=== PATIENT | female | born 1980 | race Caucasian/White ===

== ENCOUNTER → 2021-12-14 13:47 | Outpatient (BNVA) | payer MEDICAID, SELFPAY | PROVIDERS: Family Provider Nurse Practitioner Family; PCP Registered Nurse; Visit Provider Registered Nurse | DX: Z02.1 Encounter for pre-employment examination (principal) | CPT/HCPCS: 80307 ==

== ENCOUNTER → 2022-11-28 16:12 | Outpatient (BNVA) | payer MEDICAID, SELFPAY | PROVIDERS: Family Provider Nurse Practitioner Family; PCP Registered Nurse; Referring Provider Registered Nurse; Visit Provider Psychiatry & Neurology Neurology | DX: G89.29 Other chronic pain (principal); R51.9 Headache, unspecified; R53.82 Chronic fatigue, unspecified | CPT/HCPCS: 80053; 82306; 82607; 82746; 83735; 83921; 84439; 84443; 84481; 85025; 85651; 86140; 86160; 86162; 86235; 86255; 86376; 86431; 86592; 86617; 86780 ==

== ENCOUNTER → 2022-11-30 10:29 | Outpatient (BNVA) | payer MEDICAID, SELFPAY | PROVIDERS: Family Provider Nurse Practitioner Family; PCP Registered Nurse; Visit Provider Registered Nurse | DX: Z01.419 Encounter for gynecological examination (general) (routine) without abnormal findings (principal) | CPT/HCPCS: 87070; 87205; 87624 ==

== ENCOUNTER 2022-12-18 14:04 | Outpatient (CLI) | payer MEDICAID, SELFPAY ==
--- NOTE | 2022-12-18 13:45 | MR_ITS ---
WS: [id number] MRI HEAD WITH CONTRAST TECHNIQUE: Sagittal T1, T2 axial, T2 axial FLAIR, axial susceptibility weighted imaging, axial diffus ion weighted images, and coronal T2 images were obtained. Pre and post-T1 axial and post T1 coronal i mages. ADC and FSPGR images. CLINICAL INFORMATION: R51.9 - Headache, unspecified COMPARISON: None. FINDINGS: No evidence of restricted diffusion to suggest acute ischemia. Ventricular system and basal cisterns are patent. Corpus callosum is normal in appearance. No callosal atrophy. 2 tiny foci of T2 hyperinte nsity in the LEFT frontal white matter nonspecific but can be seen with migraine headaches. No signif icant parenchymal volume loss. Normal posterior fossa. Normal vascular flow voids at the skull base. No extra-axial fluid collection s. No evidence of mass or mass effect. Mastoid air cells well aerated. Small amount of fluid in the R IGHT maxillary sinus. Mild mucosal thickening ethmoid air cells. Normal optic chiasm and pituitary infundibulum. Normal cavernous sinuses and Meckel's cave. No abnorm al intracranial enhancement. Normal visualized dural venous sinuses. 4 mm T1 hyperintense hypoenhanci ng focus in the pituitary likely incidental pars intermedia or tiny Rathke's cleft cyst. Recommend co rrelation with pituitary function studies. Microadenoma less likely. MR/MR head wo/w con [id number] IMPRESSION: 1. No evidence restricted diffusion to suggest acute ischemia. 2. Two small foci of T2 hyperintensity in the LEFT frontal periventricular whi te matter nonspecific in a patient this age but can be seen with migraine heada ches. 3. No other suspicious intracranial signal abnormalities. 4. Normal corpus callosum. No atrophy of the corpus callosum. 5. No abnormal gadolinium enhancement. 6. 4 mm T1 hyperintense hypoenhancing focus in the pituitary likely incidental pars intermedia or tiny Rathke's cleft cyst. Recommend correlation with pituit milagros function studies. 7. No other suspicious findings.
[2022-12-18] MEDS: gadobenate dimeglumine 20 mL vial IV (14:46)
== END 2022-12-18 14:05 | disposition home or self-care (01) ==
LOC: RAD 14:05
PROVIDERS: Family Provider Nurse Practitioner Family; PCP Registered Nurse; Visit Provider Psychiatry & Neurology Neurology
DX: R51.9 Headache, unspecified (principal); R90.89 Other abnormal findings on diagnostic imaging of central nervous system; G89.29 Other chronic pain; R53.82 Chronic fatigue, unspecified
CPT/HCPCS: 70553; A9577

== ENCOUNTER 2022-12-19 11:56 | Outpatient (CLI) | payer MEDICAID, SELFPAY ==
--- NOTE | 2022-12-19 12:00 | MM_ITS ---
WS: [id number] VIEWS: MLO and CC views both breasts. 3D digital tomosynthesis is also included in this exam. No previous exams for comparison. Findings: There are 2 small subcentimeter nodular densities identified in the central and lateral right breast seen on the cc view only. One nodule measures about 4 mm and is seen in the central aspect of the rig ht breast at mid to posterior depth and slightly lateral to the nipple line. The second lesion measur es about 6 mm and is seen in the far lateral and posterior right breast on the CC view. There are 3 s ubcentimeter nodular densities in the central lateral left breast seen on the cc view only. These all measure in the range of 6 to 3 mm and are partially obscured. The nodular densities described in bot h breast may represent small intramammary lymph nodes however further assessment with ultrasound woul d be indicated. Also straight 90 degree lateral views of both breasts should be obtained. There are s cattered areas of fibroglandular density in both breasts. No suspicious calcification is demonstrated in either breast. No architectural distortion in either breast. MM/[place] [id number] Impression: BI-RADS: 0-Incomplete: Need additional imaging evaluation FOLLOW-UP: See Report This mammogram was also analyzed by the Computer Aided Detection System R2 Imag e Hhas.
== END 2022-12-19 11:57 | disposition home or self-care (01) ==
PROVIDERS: PCP Registered Nurse; Visit Provider Registered Nurse
DX: Z12.31 Encounter for screening mammogram for malignant neoplasm of breast (principal)
CPT/HCPCS: 77063; 77067

== ENCOUNTER 2022-12-28 07:45 | Outpatient (CLI) | payer MEDICAID, SELFPAY ==
[2022-12-28 08:34] LABS: Cortisol Random 6.75 ug/dL (2.47-19.5)
[2022-12-28 08:37] LABS: Thyroid Stimulating Hormone 2.36 uIU/mL (0.27-4.20)
[2022-12-28 09:14] LABS: Estradiol 198.3 pg/mL; Follicle Stimulating Hormone 11.9 mIU/mL; Luteinizing Hormone 18.5 mIU/mL (0.5-41.7); Prolactin 24.07 ng/mL (4.8-23.3)
[2023-01-04 05:45] LABS: Adrenocorticotropic Hormone 6 pg/mL (6-50)
[2023-01-04 15:33] LABS: IGF1 LC/MS 191 ng/mL (52-328); Z Score (Female) 0.7 SD (-2.0 - +2.0)
== END 2022-12-28 07:46 | disposition home or self-care (01) ==
PROVIDERS: PCP Registered Nurse; Visit Provider Internal Medicine
DX: E23.7 Disorder of pituitary gland, unspecified (principal)
CPT/HCPCS: 36415; 82024; 82533; 82670; 83001; 83002; 84146; 84305; 84439; 84443

== ENCOUNTER 2023-01-10 11:47 | Outpatient (CLI) | payer MEDICAID, SELFPAY ==
--- NOTE | 2023-01-10 11:56 | MM_ITS ---
WS: [id number] BILATERAL 3D TOMOSYNTHESIS DIGITAL DIAGNOSTIC MAMMOGRAPHY WITH CAD CLINICAL INFORMATION: ABNORMAL MAMMO HISTORY: Additional views COMPARISON: December 19, 2022 TECHNIQUE: Bilateral CC, MLO, and ML views. FINDINGS: Scattered fibroglandular densities bilaterally. Previously described bilateral tiny nodular densities LEFT greater than RIGHT appear unchanged. Some of these may represent tiny cysts or lymph nodes. Ult rasound described below. ULTRASOUND BREAST BILATERAL TECHNIQUE: Ultrasound bilateral breast focused area of concern. CLINICAL INFORMATION: ABNORMAL MAMMO COMPARISON: None. FINDINGS: RIGHT BREAST: Ultrasound RIGHT breast upper-outer quadrant 9-12. A few tiny incidental cysts. No susp icious cystic or solid lesions. No lesions to target for biopsy. Largest simple cyst at the 12:00 pos ition areola measuring 7.0 x 3.6 x 5.9 mm. LEFT BREAST: Ultrasound LEFT breast upper-outer quadrant 12-3. A few tiny cysts LEFT breast. No suspi cious cystic or solid lesions. No suspicious lesions to target for biopsy. MM/[place] [id number] IMPRESSION: BI-RADS: 2-Benign FOLLOW UP: 1 Year Follow-up Recommend return to annual screening mammography.
== END 2023-01-10 11:48 | disposition home or self-care (01) ==
LOC: RAD 11:50
PROVIDERS: PCP Registered Nurse; Visit Provider Registered Nurse
DX: R92.8 Other abnormal and inconclusive findings on diagnostic imaging of breast (principal); N60.02 Solitary cyst of left breast; N60.01 Solitary cyst of right breast
CPT/HCPCS: 76642; 77062; G0279

== ENCOUNTER → 2023-01-16 12:07 | Day surgery (SDC) | payer MEDICAID, SELFPAY ==
[2023-01-16] MEDS: cosyntropin 0.25 mg SDV IVP (12:33)
--- NOTE | 2023-01-16 13:40 | PC.NURSE ---
Pt referral to GI infusions for Cosyntropin stim test. Pt verbalized understanding. Tolerated procedure well.
[2023-01-16 14:29] LABS: Cosyntropin 30 Minute 20.04 mcg/dL
[2023-01-16 14:36] VITALS: BP 123/73; PULSE 85; RESP 18; TEMP 36.9; O2SAT 97
[2023-01-16 15:07] LABS: Cosyntropin 1 Hour 21.81 mcg/dL
== END ==
PROVIDERS: PCP Registered Nurse; Visit Provider Internal Medicine
DX: E27.9 Disorder of adrenal gland, unspecified (principal); R53.83 Other fatigue
CPT/HCPCS: 36415; 82533; 96374; J0834

== ENCOUNTER 2023-03-08 09:08 | Outpatient (CLI) | payer MEDICAID, SELFPAY ==
[2023-03-08 10:32] LABS: Prolactin 4.97 ng/mL (4.8-23.3)
== END 2023-03-08 09:09 | disposition home or self-care (01) ==
PROVIDERS: PCP Registered Nurse; Visit Provider Internal Medicine
DX: R79.89 Other specified abnormal findings of blood chemistry (principal); D35.2 Benign neoplasm of pituitary gland; E27.9 Disorder of adrenal gland, unspecified; R53.83 Other fatigue
CPT/HCPCS: 36415; 84146

== ENCOUNTER 2023-03-15 11:34 | Outpatient (CLI) | payer MEDICAID, SELFPAY ==
[2023-03-15 12:03] LABS: Total Volume Urine 1975 ml
[2023-03-15 12:29] LABS: Creatinine 24 Hour Urine 1382.5 mg/dL (601-1689); Urine Creatinine 70 mg/dL (28-217)
[2023-03-21 09:39] LABS: Calculated Total (E+NE) 23 mcg/24 h (26-121)
[2023-03-22 07:20] LABS: Free Cortisol Urine 41.3 mcg/24 h (4.0-50.0); Total Urine 1975 mL; Urine Creatinine 1.47 g/24 h (0.50-2.15)
== END 2023-03-15 11:35 | disposition home or self-care (01) ==
PROVIDERS: PCP Registered Nurse; Visit Provider Internal Medicine
DX: R51.9 Headache, unspecified (principal); G89.29 Other chronic pain; R53.83 Other fatigue; D35.2 Benign neoplasm of pituitary gland; R79.89 Other specified abnormal findings of blood chemistry
CPT/HCPCS: 82384; 82530; 82570

== ENCOUNTER 2023-04-04 07:06 | Outpatient (CLI) | payer MEDICAID, SELFPAY ==
--- NOTE | 2023-04-04 07:15 | US_ITS ---
WS: [id number] US pelv w/transvag [id number] HISTORY: PCOS COMPARISON: None available. Uterus: 8.8 cm x 5.6 cm x 4.6 cm. Normal size anteverted uterus. There is a hypoechoic mass in the anterior mid myometrium measuring 1. 2 x 1.5 x 1.0 cm. Mild bulge of the contour of the uterus. No additional mass. Endometrium: 1.4 cm. Normal. Right ovary: 2.5 cm x 3.3 cm x 1.9 cm. Normal size and vascularity, no cystic or solid masses. Small follicles. Left ovary: 2.9 cm x 3.0 cm x 2.0 cm. Normal size and vascularity, no cystic or solid masses. Small f ollicles. No free fluid in the cul-de-sac. IMPRESSION: 1. Anterior myometrial fibroid measuring 1.2 x 1.5 x 1.0 cm. 2. Normal endometrium. 3. No ovarian mass or cyst.
[2023-04-04 08:08] LABS: Basophils % 0.3 %; Eosinophils # 0.1 10^3/uL (0.0-0.8); Eosinophils % 1.5 %; Hematocrit 42.3 % (36-47); Lymphocytes # 1.9 10^3/uL (0.8-4.8); Lymphocytes % 28.4 %; Mean Corpuscular HGB Conc 33.8 g/dL (30-55); Mean Corpuscular Hemoglobin 30.8 pg (27-33); Mean Platelet Volume 10.9 fL (7.4-10.4); Monocytes # 0.5 10^3/uL (0.2-0.9); Monocytes % 7.1 %; Neutrophils # 4.24 10^3/uL (1.8-7.7); Neutrophils % 62.6 %; Nucleated Red Blood Cells % 0 %; Platelet Count 225 10^3/cmm (157-399); Red Blood Count 4.65 10^6/uL (3.85-5.65); Red Cell Distribution Width 12.4 % (12.1-15.1); White Blood Count 6.77 10^3/uL (3.29-11.43)
[2023-04-04 08:24] LABS: Anion Gap 12.4 (5-19); Blood Urea Nitrogen 7 mg/dL (6-20); Calcium 9.1 mg/dL (8.5-10.5); Carbon Dioxide 29 mmol/L (22-29); Chloride 101 mmol/L (98-107); Glomerular Filtration Rate 135.3 mL/min (90-130); Glucose 109 mg/dL (65-115); Osmolality Calculated 285 mOsm/kg (285-295); Potassium 4.4 mmol/L (3.5-5.1); Sodium 138 mmol/L (136-145)
[2023-04-04 09:11] LABS: 25 Hydroxy Vitamin D 45 ng/mL (30-100); Vitamin B12 562 pg/mL (232-1245)
[2023-04-13 01:11] LABS: Plasma Renin Activity LC/MS/MS 1.03 ng/mL/h (0.25-5.82)
== END 2023-04-04 07:07 | disposition home or self-care (01) ==
PROVIDERS: PCP Registered Nurse; Visit Provider Internal Medicine
DX: R79.89 Other specified abnormal findings of blood chemistry (principal); E28.2 Polycystic ovarian syndrome; R53.83 Other fatigue; D35.2 Benign neoplasm of pituitary gland; E27.9 Disorder of adrenal gland, unspecified; E53.8 Deficiency of other specified B group vitamins
CPT/HCPCS: 36415; 76830; 76856; 80048; 82088; 82306; 82607; 84244; 85025

== ENCOUNTER → 2023-04-19 11:28 | Outpatient (BNVA) | payer MEDICAID, SELFPAY | PROVIDERS: PCP Registered Nurse; Visit Provider Internal Medicine | DX: E27.9 Disorder of adrenal gland, unspecified (principal); E28.2 Polycystic ovarian syndrome; R79.89 Other specified abnormal findings of blood chemistry; D35.2 Benign neoplasm of pituitary gland; R53.83 Other fatigue | CPT/HCPCS: 80061; 83036; 84146; 84403 ==

== ENCOUNTER 2023-05-02 07:57 | Outpatient (CLI) | payer MEDICAID, SELFPAY ==
--- NOTE | 2023-05-02 08:30 | FL_ITS ---
WS: [id number] LUMBAR PUNCTURE CLINICAL INFORMATION: R51.9 - Headache, unspecified COMPARISON: None. TECHNIQUE: Informed consent: The procedure and its potential risk and complications were discussed with the naren ent. Verbal and written consent was obtained. Timeout: A timeout was performed to confirm correct patient, procedure, and site. Patient was prepped and draped in the usual sterile fashion. Lidocaine 1% was used for local anesthes ia. Utilizing fluoroscopic guidance, a 3.5 inch 22-gauge spinal needle was advanced into the subarach noid space at L3-L4 via LEFT oblique sublaminar approach. Free flow of clear CSF was obtained. 9 c c of clear CSF was collected and sent the lab for further analysis. FLUOROSCOPIC TIME: 1min [id number] # of spot films: 1 IMPRESSION: Fluoroscopically guided lumbar puncture. No immediate complications
[2023-05-02 11:44] LABS: CSF Mononuclear # 0.001 10^3/uL (50-90); Mononuclear WBC CSF % 100 % (50-90); Polynuclear WBC CSF % 0 % (0-10); Red Blood Cell CSF 0 10^3/uL (0-0); White Blood Cell CSF 1 /uL (0-5)
[2023-05-02 11:47] LABS: Glucose CSF 63 mg/dL (40-70); Total Protein CSF 32 mg/dL (15-45)
[2023-05-02 12:09] LABS: Appearance CSF CLEAR (CLEAR); Color CSF COLORLESS (COLORLESS)
[2023-05-02 14:33] LABS: Immunoglobulin IGG 993 mg/dL (700-1600)
[2023-05-07 03:31] LABS: VDRL on CSF NON-REACTIVE
[2023-05-07 14:33] LABS: AQP4 AB Titer CSF NEGATIVE (NEGATIVE)
[2023-05-07 16:03] LABS: Oligoclonal Bands IGG, CSF ABSENT (ABSENT)
[2023-05-08 10:11] LABS: Myelin Oligodendrocyte CBA CSF NEGATIVE (NEGATIVE)
[2023-05-08 14:24] LABS: Immunoglobulin G, CSF 2.1 mg/dL (0.8-7.7)
[2023-05-10 18:11] LABS: Myelin Oligodendrocyte(MOG) AB NEGATIVE (NEGATIVE)
== END 2023-05-02 07:58 | disposition home or self-care (01) ==
LOC: RAD 07:57
PROVIDERS: PCP Registered Nurse; Visit Provider Psychiatry & Neurology Neurology
DX: R51.9 Headache, unspecified (principal); G89.29 Other chronic pain; R53.82 Chronic fatigue, unspecified; R68.89 Other general symptoms and signs; G37.9 Demyelinating disease of central nervous system, unspecified
CPT/HCPCS: 36415; 62328; 80503; 82784; 82945; 83516; 83916; 84157; 86225; 86255; 86592; 87070; 87075; 87205; 87327; 89050

== ENCOUNTER → 2023-06-25 09:02 | Outpatient (BNVA) | payer MEDICAID, SELFPAY | PROVIDERS: PCP Registered Nurse; Visit Provider Internal Medicine | DX: D35.2 Benign neoplasm of pituitary gland (principal); R79.89 Other specified abnormal findings of blood chemistry; E27.9 Disorder of adrenal gland, unspecified | CPT/HCPCS: 36415; 80061; 83036; 84146 ==

== ENCOUNTER 2023-06-27 10:42 | Outpatient (CLI) | payer MEDICAID, SELFPAY ==
--- NOTE | 2023-06-27 11:00 | MR_ITS ---
WS: [id number] MRI HEAD WITHOUT AND WITH CONTRAST TECHNIQUE: Sagittal T1, T2 axial, T2 axial FLAIR, axial susceptibility weighted imaging, axial diffus ion weighted images, and coronal T2 images were obtained. Pre and post-T1 axial and post T1 coronal i mages. ADC and FSPGR images. Pituitary protocol utilized. Dynamic pituitary images obtained. CLINICAL INFORMATION: E23.7 - Disorder of pituitary gland, unspecified COMPARISON: MRI head 12/18/2022 CLINICAL INFORMATION: E23.7 - Disorder of pituitary gland, unspecified FINDINGS: Again seen is the small 4 mm T1 hyperintense hypoenhancing lesion in the pituitary anterior to the no rmal T1 hyperintense neurohypophysis and posterior to the adenohypophysis anteriorly. No significant enhancement today. This appears unchanged. Normal optic chiasm and pituitary infundibulum. Normal cav ernous sinuses. Differential considerations include hemorrhagic microadenoma versus Rathke's cleft cy st. No other significant changes compared to previous. No evidence of restricted diffusion to suggest acute ischemia. Ventricular system and basal cisterns are patent. No new suspicious intracranial signal normalities. Normal posterior fossa. Normal vascular flow voids at the skull base. No extra-axial fluid collection s. Paranasal sinuses and mastoid air cells are well aerated. No hemosiderin on the susceptibly weight ed images. IMPRESSION: 1. Stable hypoenhancing T1 hyperintense lesion interposed between the adenohypophysis and neurapophy sis. Differential considerations include Rathke's cleft cyst versus hemorrhagic pituitary microadenom a. Recommend correlation with pituitary function studies. 2. Otherwise no significant changes compared to previous.
[2023-06-27] MEDS: gadobenate dimeglumine 20 mL vial IV (12:59)
== END 2023-06-27 10:43 | disposition home or self-care (01) ==
LOC: RAD 10:42
PROVIDERS: PCP Registered Nurse; Visit Provider Psychiatry & Neurology Neurology
DX: E23.7 Disorder of pituitary gland, unspecified (principal)
CPT/HCPCS: 70553; A9577

== ENCOUNTER → 2023-09-04 14:16 | Outpatient (BNVA) | payer MEDICAID, SELFPAY | PROVIDERS: PCP Registered Nurse; Visit Provider Internal Medicine | DX: R07.9 Chest pain, unspecified (principal) | CPT/HCPCS: 93005 ==

== ENCOUNTER 2023-09-12 10:03 | Outpatient (CLI) | payer MEDICAID, SELFPAY ==
--- NOTE | 2023-09-12 10:30 | USCV_ITS ---
Carmen Anne Age: 43 Gender: F : 1980 Exam Date: 09/12/2023 10:20 Ordering Phys: Baudilio Ma M.D ([email or web address]) Technologist: MEAGAN Exam Location: [facility] – [place], [place] Indication: CHEST PAIN AND SHORTNESS OF BREATH BP: 109 / 79 HR: 65 Rhythm: Sinus Technical Quality: Adequate MEASUREMENTS (Male / Female) Normal Values 2D ECHO LV Diastolic Diameter PLAX 4.8 cm 4.2 - 5.9 / 3.9 - 5.3 cm IVS Diastolic Thickness 0.9 cm 0.6 - 1.0 / 0.6 - 0.9 cm IVS Systolic Thickness 1.2 cm LVPW Diastolic Thickness 1.2 cm 0.6 - 1.0 / 0.6 - 0.9 cm LVPW Systolic Thickness 2.2 cm LVOT Diameter 2.0 cm LV Ejection Fraction 2D Teich 80.1 % LV Ejection Fraction MOD 2C 56.5 % LV Ejection Fraction 2C AL 0.0 % LA Diameter 2.6 cm Aorta at Sinotubular Diameter 2.0 cm IVC Diameter 1.4 cm M-MODE LA Ao Ratio MM 1.0 AV Cusp Separation MM 1.6 cm DOPPLER AV Peak Velocity 106.0 cm/s LVOT Peak Velocity 101.0 cm/s AV Area Cont Eq vti 2.6 cm squared AV Area Cont Eq pk 3.0 cm squared MV Peak Velocity 87.0 cm/s MV Area PHT 3.6 cm squared Mitral E to A Ratio 1.8 TR Peak Velocity 166.0 cm/s TR Peak Gradient 11.0 mmHg TR Mean Velocity 149.0 cm/s TR Mean Gradient 9.1 mmHg TR Velocity Time Integral 62.1 cm TV Peak E Velocity 72.0 cm/s PV Peak Velocity 94.0 cm/s RV Ejection Time 0.3 s FINDINGS Left Ventricle Left ventricle is normal in size. LV systolic function is normal with EF of 55 to 60%. No regional wall motion abnormalities seen. Diastolic function is normal. Right Ventricle Normal in size and function Right Atrium Normal in size Left Atrium Normal in size Mitral Valve Structurally normal mitral valve. Trace mitral regurgitation. Aortic Valve Structurally normal aortic valve. No significant stenosis or regurgitation. Tricuspid Valve Mild tricuspid regurgitation. Insufficient TR jet to calculate RVSP. Pulmonic Valve Not well visualized Pericardium Normal Aorta Normal in size IVC Appears to be normal CONCLUSIONS LV systolic function normal with EF of 55 to 60%. Diastolic function is normal. Trace mitral regurgitation Mild tricuspid regurgitation Compared to prior echocardiogram from 2016, no significant changes are seen. Baudilio Ma MD (Electronically Signed) Final Date: 14 September 2023 13:57 S
== END 2023-09-12 10:04 | disposition home or self-care (01) ==
LOC: RAD 10:03
PROVIDERS: PCP Registered Nurse; Visit Provider Internal Medicine
DX: R07.9 Chest pain, unspecified (principal); R06.02 Shortness of breath
CPT/HCPCS: 93306

== ENCOUNTER 2023-09-16 12:34 | Outpatient (CLI) | payer MEDICAID, SELFPAY ==
[2023-09-16 12:41] VITALS: BMI 24.7
--- NOTE | 2023-09-16 12:47 | ECG_ITS ---
[facility] Test Date: 2023-09-16 Pat Name: Carmen Anne Department: Room: Gender: Female Hearing Therapist: : 1980 Requested By: Baudilio Ma Order Number: [id number] Walker MD: Baudilio Ma M.D. Interpretive Statements NAME OF STUDY: TREADMILL STRESS TEST INDICATION: [Chest Pain] EXERCISE DATA: The patient was exercised by Balaji protocol. Baseline heart rate was 88 beats per minute. Baseline blood pressure was 123/88 millimeters of mercury. Maximal predicted heart rate was 178 beats per minute. Maximum heart rate achieved was 185, which was 103% of the maximum predicted heart rate. Maximum blood pressure was 163/82 millimeters of mercury. Total exercise time was 9 minutes 31 seconds. Maximum METs achieved was 13.5. The reason for ending the test was completion of protocol. The patient complained of shortness of breath during the stress test, which then resolved at the end of the test. ELECTROCARDIOGRAM: BASELINE: Showed sinus rhythm, normal axis, no significant ST-T changes at the baseline noted. [] EXERCISE: At the peak exercise level, [] No significant ST-T changes suggestive of ischemia noted. [] RECOVERY: During the recovery period, heart rate dropped appropriately. No significant ST-T changes in the recovery suggestive of ischemia noted. [] CONCLUSION: 1. Exercise capacity is excellent 2. Heart rate response was appropriate 3. Blood pressure response was appropriate 4. Symptoms not suggestive of ischemia. 5. Stress test doesnot show ischemia Electronically Signed On 10-02-2023 16:28:26 CDT by Baudilio Ma M.D. [email or web address]
[2023-09-16 13:27] VITALS: BP 112/64; PULSE 122
== END 2023-09-16 12:35 | disposition home or self-care (01) ==
PROVIDERS: PCP Registered Nurse; Visit Provider Internal Medicine
DX: R07.9 Chest pain, unspecified (principal); R06.02 Shortness of breath
CPT/HCPCS: 93017

== ENCOUNTER → 2023-09-30 10:51 | Outpatient (BNVA) | payer MEDICAID, SELFPAY | PROVIDERS: PCP Registered Nurse; Visit Provider Obstetrics & Gynecology | DX: N93.9 Abnormal uterine and vaginal bleeding, unspecified (principal); D25.9 Leiomyoma of uterus, unspecified | CPT/HCPCS: 76830 ==

== ENCOUNTER 2023-10-07 10:27 | Outpatient (CLI) | payer MEDICAID, SELFPAY ==
[2023-10-07 11:46] LABS: Chol HDL Ratio 6.34 mg/dL (0.0-4.40); Cholesterol 241 mg/dL (0-200); HDL Cholesterol 38 mg/dL (60-100); LDL Cholesterol Calculated 156 mg/dL (50-129); LDL HDL Ratio 4.11 RATIO (0.00-3.22); Triglycerides 235 mg/dL (0-150)
[2023-10-07 11:47] LABS: Prolactin 1.57 ng/mL (4.8-23.3)
[2023-10-07 16:23] LABS: Cosyntropin Baseline 9.06 mcg/dL
[2023-10-07 16:24] LABS: Cosyntropin 30 Minute 25.32 mcg/dL
[2023-10-07 16:37] LABS: Free T4 Free Thyroxine 1.65 ng/dL (0.82-1.77)
== END 2023-10-07 10:28 | disposition home or self-care (01) ==
LOC: LAB 10:30
PROVIDERS: PCP Registered Nurse; Visit Provider Internal Medicine
DX: D35.2 Benign neoplasm of pituitary gland (principal); E34.9 Endocrine disorder, unspecified; R79.89 Other specified abnormal findings of blood chemistry; E27.9 Disorder of adrenal gland, unspecified
CPT/HCPCS: 36415; 80061; 82533; 84144; 84146; 84439

== ENCOUNTER 2023-10-07 10:58 | Oncology outpatient (recurring) (ONCR) | payer MEDICAID, SELFPAY ==
[2023-10-07 11:20] VITALS: BP 107/70; PULSE 76; RESP 18; TEMP 36.8; O2SAT 97
[2023-10-07] MEDS: cosyntropin 0.25 mg SDV IVP (11:41)
== END 2023-10-20 23:59 | disposition home or self-care (01) ==
PROVIDERS: PCP Registered Nurse; Visit Provider Internal Medicine
DX: D35.2 Benign neoplasm of pituitary gland (principal); Z53.9 Procedure and treatment not carried out, unspecified reason
CPT/HCPCS: 96374; J0834

== ENCOUNTER 2023-10-30 14:47 | Outpatient (CLI) | payer MEDICAID, SELFPAY ==
[2023-10-30 15:52] LABS: Cortisol Random 10.62 ug/dL (2.47-19.5)
[2023-11-04 03:39] LABS: Adrenocorticotropic Hormone 6 pg/mL (6-50)
== END 2023-10-30 14:48 | disposition home or self-care (01) ==
LOC: LAB 14:48
PROVIDERS: PCP Registered Nurse; Visit Provider Internal Medicine
DX: N92.6 Irregular menstruation, unspecified (principal); E34.9 Endocrine disorder, unspecified; D35.2 Benign neoplasm of pituitary gland
CPT/HCPCS: 36415; 82024; 82533

== ENCOUNTER 2023-12-03 15:14 | Emergency (ER) | payer MEDICAID, SELFPAY ==
[2023-12-03 15:20] VITALS: PULSE 70; RESP 16; TEMP 36.8; O2SAT 97; BMI 23.9
[2023-12-03 16:03] VITALS: BP 144/84; PULSE 74; RESP 16; O2SAT 96
--- NOTE | 2023-12-03 16:03 | CTR_ITS ---
PROCEDURE INFORMATION: Exam: CTA Head With Contrast, Arteriography Exam date and time: 12/03/2023 5:01 PM Age: 43 years old Clinical indication: Pain; Headache; Patient HX: Pituitary tumor; Additional info: KENT TECHNIQUE: Imaging protocol: Computed tomographic angiography of the head with contrast. Exam focused on the arteries. 3D rendering (Not supervised by radiologist): MIP and/or 3D reconstructed images were created by the technologist. Radiation optimization: All CT scans at this facility use at least one of these dose optimization techniques: automated exposure control; mA and/or kV adjustment per patient size (includes targeted exams where dose is matched to clinical indication); or iterative reconstruction. Contrast material: OMNI 350; Contrast volume: 100 ml; Contrast route: INTRAVENOUS (IV); COMPARISON: CT head wo con* [id number] 03/12/2023 16:57 RADIATION DOSE METRICS: Total DLP (mGy-cm): 492 FINDINGS: ANTERIOR CIRCULATION: Right internal carotid artery: Intracranial segment is patent with no significant stenosis. No aneurysm. Right middle cerebral artery: No occlusion or significant stenosis. No aneurysm. Right anterior cerebral artery: No occlusion or significant stenosis. No aneurysm. Left internal carotid artery: Intracranial segment is patent with no significant stenosis. No aneurysm. Left middle cerebral artery: No occlusion or significant stenosis. No aneurysm. Left anterior cerebral artery: No occlusion or significant stenosis. No aneurysm. POSTERIOR CIRCULATION: Right vertebral artery: No occlusion or significant stenosis. No aneurysm. Left vertebral artery: No occlusion or significant stenosis. No aneurysm. Basilar artery: No occlusion or significant stenosis. No aneurysm. Right posterior cerebral artery: No occlusion or significant stenosis. No aneurysm. Left posterior cerebral artery: No occlusion or significant stenosis. No aneurysm. Brain: No definite mass, mass effect, or midline shift. Cerebral ventricles: No ventriculomegaly. Bones/joints: Unremarkable. No acute fracture. Soft tissues: Unremarkable. PROCEDURE INFORMATION: Exam: CTA Neck With Contrast Exam date and time: 12/03/2023 5:01 PM Age: 43 years old Clinical indication: Pain; Headache; Patient HX: Pituitary tumor; Additional info: KENT TECHNIQUE: Imaging protocol: Computed tomographic angiography of the neck with contrast. Exam focused on the cervical segments of the vasculature. 3D rendering (Not supervised by radiologist): MIP and/or 3D reconstructed images were created by the technologist. Radiation optimization: All CT scans at this facility use at least one of these dose optimization techniques: automated exposure control; mA and/or kV adjustment per patient size (includes targeted exams where dose is matched to clinical indication); or iterative reconstruction. Contrast material: OMNI 350; Contrast volume: 100 ml; Contrast route: INTRAVENOUS (IV); COMPARISON: CT head wo con* [id number] 03/12/2023 16:57 RADIATION DOSE METRICS: Total DLP (mGy-cm): 492 FINDINGS: Right common carotid artery: No stenosis. No dissection or occlusion. Right internal carotid artery: No stenosis of the extracranial segment. No dissection or occlusion. Right external carotid artery: No occlusion or stenosis of the origin. Left common carotid artery: No stenosis. No dissection or occlusion. Left internal carotid artery: No stenosis of the extracranial segment. No dissection or occlusion. Left external carotid artery: No occlusion or stenosis of the origin. Right vertebral artery: No stenosis. No dissection or occlusion. Left vertebral artery: No stenosis. No dissection or occlusion. Lymph nodes: There are old calcified left hilar lymph nodes Soft tissues: Normal. No significant soft tissue swelling. Bones/joints: No acute fracture. Lungs: There is a 3 mm noncalcified nodule in the posterior right upper lobe (series 4, image 78). For patients at low risk (minimal or absent history of smoking and of other known risk factors), no routine follow-up is indicated. For patients at high risk (history of smoking or of other known risk factors), consider optional CT Chest at 12 months. (Reference: Dion) CT/CT angio headneck* [id number] IMPRESSION: No large vessel stenosis or occlusion. IMPRESSION: 1. No large vessel stenosis or occlusion 2. 3 mm noncalcified nodule right upper lobe with follow-up recommendations as above REFERENCES: 1. Dion Hernandez, et al. Guidelines for Management of Incidental Pulmonary Nodules Detected on CT Images: From the Fleischner Society 2017. Radiology. 2017;284(1):228-243. 2. NASCET CRITERIA. The degree of stenosis in the cervical segment of the internal carotid artery is based on NASCET criteria. Normal is no stenosis. Mild is less than 50% stenosis. Moderate is 50-69% stenosis. Severe is 70% to 99% stenosis. Total occlusion is no detectable patent lumen.
--- NOTE | 2023-12-03 16:03 | CTR_ITS ---
PROCEDURE INFORMATION: Exam: CT Head Without Contrast Exam date and time: 12/03/2023 4:57 PM Age: 43 years old Clinical indication: Pain; Headache; Patient HX: Pituitary tumor; Additional info: KENT TECHNIQUE: Imaging protocol: Computed tomography of the head without contrast. Radiation optimization: All CT scans at this facility use at least one of these dose optimization techniques: automated exposure control; mA and/or kV adjustment per patient size (includes targeted exams where dose is matched to clinical indication); or iterative reconstruction. COMPARISON: MR head wo/w con [id number] 18/12/2022 14:18 and MRI pituitary protocol June 27, 2023 RADIATION DOSE METRICS: Total DLP (mGy-cm): 1049.38 FINDINGS: Brain: Normal. No hemorrhage. Unremarkable white matter. No mass effect. The patient's known 4 mm pituitary lesion cannot be visualized on this exam. On the sagittal images there has been no major interval change in the appearance of the pituitary fossa or suprasellar region when compared to the previous MRIs Cerebral ventricles: No ventriculomegaly. Paranasal sinuses: Visualized sinuses are unremarkable. No fluid levels. Mastoid air cells: Visualized mastoid air cells are well aerated. Bones: Unremarkable. No acute fracture. Soft tissues: Unremarkable. CT/CT head wo con* [id number] IMPRESSION: No acute intracranial abnormality.
--- NOTE | 2023-12-03 16:06 | ED_ITS ---
HPI - Headache General: Chief Complaint: Headache Stated Complaint: headache Time Seen by Provider: 12/03/23 15:58 Source: patient Mode of arrival: ambulatory Limitations: no limitations History of Present Illness: 43-year-old female with history of pitui tary tumor she is also had history of chronic headaches as well she said she had a worsening headache over the last 2 weeks and she spoke to her neurologist who wanted her to come here for imaging to rule out possible hemorrhage she states it does feel like her previous headaches is just lasted longer denies any vomiting or diarrhea Associated symptoms: Deny chest pain, fever(s), nausea, rash or vomiting Review of Systems Const: Denies: fever(s), chills, body aches or change in appetite Eyes: Denies: blurry vision or eye discomfort ENMT: Denies: throat pain or dental pain Card: Denies: chest pain Resp: Denies: dyspnea GI: Denies: abdominal pain, nausea, vomiting or diarrhea Musc: Denies: neck pain or back pain Skin/Breast: Denies: rash Neuro: Reports: headache(s) PFSH ED PFSH: Medical History Fibromyalgia Chronic fatigue syndrome 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 Dx based on symptoms when in highschool Asthma Surgical History History of tubal ligation 2006 Family History Grandmother Cancer Mother Hypertension Social History Smoking and tobacco/nicotine status: former use of tobacco/nicotine Alcohol intake: never Adopted: No Caregiver/support person: No Lives independently: No Marital status: Number of children: 1 service: No Sexually active: Yes Physical Exam Const: COMMON NORMALS: no acute distress, patient oriented x3 and healthy appearing HENMT: COMMON NORMALS: normocephalic and atraumatic HEAD & SCALP: normocephalic and atraumatic Eye: COMMON NORMALS: Equal, round and reactive pupils present and EOMs intact bilaterally PUPIL: Yes Equal, round and reactive pupils present Neck/C-Spine: COMMON NORMALS: full ROM and supple Chest: COMMONS NORMALS: normal inspection of the chest Resp: COMMON NORMALS: normal respiratory effort Cardio: COMMON NORMALS: regular rate, regular rhythm and No murmurs present (Cardio) RATE: regular rate RHYTHM: regular rhythm Extremity: COMMON NORMALS: normal to inspection and full ROM Neuro: COMMON NORMALS: patient oriented x3, moves all extremities and no focal motor deficits Psych: COMMON NORMALS: mental status grossly normal, Normal thought process present and cooperative THOUGHT PROCESS: Normal thought process present Skin: COMMON NORMALS: no rashes or lesions noted and no wounds GENERAL SKIN EXAM: no rashes or lesions noted Course Vital Signs: Vital signs: Vital Signs Temperature 98.3 F 12/03/23 15:20 Pulse Rate 85 12/03/23 17:30 Respiratory Rate 16 12/03/23 16:03 Blood Pressure 115/81 12/03/23 17:30 Pulse Oximetry 97 12/03/23 17:30 Oxygen Delivery Me thod Room Air 12/03/23 17:30 MDM - Headache Medical Decision Making Patient presents here with headache headaches resolved here imaging shows no signs of hemorrhage did inform her of the lung nodule she needs to follow-up with PCP she stable for discharge return if worsening Medical Records I reviewed the patient's medical records. Lab Data Radiology Impressions Head CT 12/03/23 16:03 IMPRESSION: No acute intracranial abnormality. Head/Neck CTA 12/03/23 16:03 IMPRESSION: No large vessel stenosis or occlusion. IMPRESSION: 1. No large vessel stenosis or occlusion 2. 3 mm noncalcified nodule right upper lobe with follow-up recommendations as above REFERENCES: 1. Dion H, et al. Guidelines for Management of Incidental Pulmonary Nodules Detected on CT Images: From the Fleischner Society 2017. Radiology. 2017;284(1):228-243. 2. NASCET CRITERIA. The degree of stenosis in the cervical segment of the internal carotid artery is based on NASCET criteria. Normal is no stenosis. Mild is less than 50% stenosis. Moderate is 50-69% stenosis. Severe is 70% to 99% stenosis. Total occlusion is no detectable patent lumen. All radiology interpretation(s) finalized by discharge Discharge Plan Discharge Patient Disposition: Home Clinical Impression: Headache Condition: Stable Prescriptions: No Action albuterol sulfate 90 mcg/actuation HFA aerosol inhaler 2 puff inhalation Q6H PRN (Reason: asthma) 30 Days Qty: 8.5 1RF norethindrone-e.estradiol-iron [June FE 08/10 (28)] 1 mg-20 mcg (21)/75 mg (7) tablet 1 tab PO DAILY Qty: 84 3RF lysine 1,000 mg tablet 1,000 mg PO DAILY PRN nystatin 100,000 unit/mL suspension 5 ml PO BID 10 Days Qty: 100 0RF Rx Instructions: swish and swallow sertraline [Zoloft] 25 mg tablet 25 mg PO DAILY 30 Days Qty: 30 1RF cholecalciferol (vitamin D3) 1,250 mcg (50,000 unit) capsule 50,000 unit PO .weekly Qty: 7 5RF cabergoline 0.5 mg tablet 0.25 mg PO .3xweek 90 Days Qty: 72 0RF Victoza 3-Cuauhtemoc 0.6 mg/0.1 mL (18 mg/3 mL) pen injector See Rx Instructions SUBCUT .COMPLEX Qty: 9 0RF Rx Instructions: 1.8mg/day SUBCUT Nurtec ODT 75 mg tablet,disintegrating 75 mg PO ONCE PRN (Reason: migraine headache) Discharge Orders: Discharge ED (Routine); Ordered 12/03/23 Ordered By: Jose Antonio Walden Referrals: Shu Celis, BUSINESS REPRESENTATIVE [Primary Care Provider] - 1-3 days Discharge Diet: Advance as tolerated Discharge Activity: Resume usual activity Patient Instructions: General Headache (ED) Coding Level of Care Code ED Nib Finisher for Abhi Quiroz
[2023-12-03 16:30] VITALS: PULSE 70; O2SAT 96
[2023-12-03] MEDS: diphenhydrAMINE 50 mg/mL SDV 1mL IVP (16:45)
[2023-12-03] MEDS: metoclopramide 5 mg/mL SDV 2 mL 10 MG IVP (16:46)
[2023-12-03] MEDS: iohexol 350 mg/mL 500 mL Btl (per mL) IV (17:05)
[2023-12-03 17:30] VITALS: BP 115/81; PULSE 85; O2SAT 97
[2023-12-03 17:58] VITALS: PULSE 79; O2SAT 97
== END 2023-12-03 17:59 | disposition home or self-care (01) ==
PROVIDERS: Emergency Provider Emergency Medicine; PCP Registered Nurse
DX: R51.9 Headache, unspecified (principal); Z87.891 Personal history of nicotine dependence
CPT/HCPCS: 70450; 70496; 70498; 96374; 96375; 99285; J1200; J2765; Q9967

== ENCOUNTER 2024-01-24 12:54 | Outpatient (CLI) | payer MEDICAID, SELFPAY ==
--- NOTE | 2024-01-24 12:57 | MM_ITS ---
WS: [id number] BILATERAL 3D TOMOSYNTHESIS DIGITAL SCREENING MAMMOGRAPHY WITH CAD CLINICAL INFORMATION: SCREENING HISTORY: Screening mammogram. No current complaints. COMPARISON: 2022 TECHNIQUE: Bilateral CC and MLO views. FINDINGS: Scattered fibroglandular densities bilaterally. No suspicious focal mass, asymmetry, calcifications, or architectural distortion. No evidence of malignancy. Few incidental punctate calcifications. A few small stable ovoid nodules bilaterally previously evaluated MM/[place] [id number] IMPRESSION: BI-RADS: 2-Benign FOLLOW UP: 1 Year Follow-up Recommend return to annual screening mammography.
== END 2024-01-24 12:55 | disposition home or self-care (01) ==
PROVIDERS: PCP Registered Nurse; Visit Provider Registered Nurse
DX: Z00.00 Encounter for general adult medical examination without abnormal findings (principal); Z12.31 Encounter for screening mammogram for malignant neoplasm of breast; R92.323 Mammographic fibroglandular density, bilateral breasts; N63.0 Unspecified lump in unspecified breast
CPT/HCPCS: 77063; 77067; 80053; 80061; 85025

== ENCOUNTER 2024-04-27 11:06 | Outpatient (CLI) | payer MEDICAID, SELFPAY ==
[2024-04-27 11:30] LABS: Basophils % 0.2 %; Eosinophils % 0.3 %; Lymphocytes # 2.5 10^3/uL (0.8-4.8); Lymphocytes % 27.8 %; Mean Corpuscular Hemoglobin 30.8 pg (27-33); Mean Corpuscular Volume 93.4 fl (85-98); Mean Platelet Volume 10.9 fL (7.4-10.4); Monocytes # 0.4 10^3/uL (0.2-0.9); Monocytes % 4.3 %; Neutrophils # 6.14 10^3/uL (1.8-7.7); Neutrophils % 67.2 %; Nucleated Red Blood Cells % 0 %; Platelet Count 231 10^3/cmm (157-399); Red Blood Count 4.71 10^6/uL (3.85-5.65); Red Cell Distribution Width 12.8 % (12.1-15.1); White Blood Count 9.14 10^3/uL (3.29-11.43)
[2024-04-27 12:00] LABS: Follicle Stimulating Hormone 14.9 mIU/mL; Luteinizing Hormone 18.7 mIU/mL (0.5-41.7); Progesterone 0.723 ng/mL; Prolactin 2.03 ng/mL (4.8-23.3)
[2024-04-27 12:02] LABS: Alanine Aminotransferase < 5 U/L (0-33); Albumin Level 4.1 g/dL (3.5-5.2); Alkaline Phosphatase 97 U/L (35-105); Anion Gap 10.2 (5-19); Aspartate Amino Transferase 17 U/L (0-32); Blood Urea Nitrogen 10 mg/dL (6-20); Calcium 9.2 mg/dL (8.5-10.5); Carbon Dioxide 27 mmol/L (22-29); Chloride 100 mmol/L (98-107); Globulin 2.9 g/dL (1.3-4.6); Glomerular Filtration Rate 91.3 mL/min (90-130); Glucose 104 mg/dL (65-115); Osmolality Calculated 275 mOsm/kg (285-295); Potassium 4.2 mmol/L (3.5-5.1); Sodium 133 mmol/L (136-145); Thyroid Stimulating Hormone 2.23 uIU/mL (0.27-4.20); Total Bilirubin 0.4 mg/dL (0.15-1.2)
[2024-04-27 13:00] LABS: Cortisol Random 8.97 ug/dL (2.47-19.5)
== END 2024-04-27 11:07 | disposition home or self-care (01) ==
LOC: LAB 11:07
PROVIDERS: Internal Medicine; PCP Registered Nurse; Visit Provider Registered Nurse
DX: D35.2 Benign neoplasm of pituitary gland (principal); E28.2 Polycystic ovarian syndrome
CPT/HCPCS: 36415; 80053; 82533; 82670; 83001; 83002; 84144; 84146; 84305; 84439; 84443; 85025

== ENCOUNTER 2024-05-06 11:23 | Outpatient (CLI) | payer MEDICAID, SELFPAY ==
--- NOTE | 2024-05-06 11:45 | MR_ITS ---
WS: [id number] MRI HEAD WITH CONTRAST WITH PITUITARY PROTOCOL TECHNIQUE: Sagittal T1, T2 axial, T2 axial FLAIR, axial susceptibility weighted imaging, axial diffus ion weighted images, and coronal T2 images were obtained. Pre and post-T1 axial and post T1 coronal i mages. ADC and FSPGR images. Pituitary protocol utilized. 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 Today this measures approximately 3.4 mm compared to 4.3 mm previously and short axis dimensi on. Decreased previously described T1 hyperintensity has improved which may be due to improved protei naceous debris or hemorrhage. Normal optic chiasm and pituitary infundibulum. No suprasellar extensio n. No evidence of restricted diffusion to suggest acute ischemia. No suspicious intracranial signal abno rmalities. Normal posterior fossa. Normal vascular flow voids at the skull base. No extra-axial fluid collections. No evidence of mass or mass effect. Paranasal sinuses and mastoid air cells are well ae rated. No hemosiderin on susceptibly weighted images. MR/MR pituitary wo/w con* [id number] IMPRESSION: 1. Previously described pituitary lesion appears slightly decreased in size to day measuring 3.4 mm compared to 4.3 mm previously 2. Otherwise no significant interval changes. 3. Normal optic chiasm and pituitary infundibulum.
[2024-05-06] MEDS: gadobenate dimeglumine 20 mL vial 14 ML IV (12:41)
== END 2024-05-06 11:24 | disposition home or self-care (01) ==
LOC: RAD 11:23
PROVIDERS: PCP Registered Nurse; Visit Provider Psychiatry & Neurology Neurology
DX: D35.2 Benign neoplasm of pituitary gland (principal)
CPT/HCPCS: 70553

== ENCOUNTER 2024-08-04 09:07 | Outpatient (CLI) | payer MEDICAID, SELFPAY ==
[2024-08-04 09:28] LABS: Basophils % 0.2 %; Eosinophils # 0.1 10^3/uL (0.0-0.8); Eosinophils % 0.8 %; Hematocrit 42.8 % (36-47); Lymphocytes # 2.2 10^3/uL (0.8-4.8); Lymphocytes % 22.7 %; Mean Corpuscular HGB Conc 33.4 g/dL (30-55); Mean Corpuscular Hemoglobin 31.4 pg (27-33); Mean Corpuscular Volume 93.9 fl (85-98); Mean Platelet Volume 10.9 fL (7.4-10.4); Monocytes # 0.4 10^3/uL (0.2-0.9); Monocytes % 3.7 %; Neutrophils # 6.94 10^3/uL (1.8-7.7); Neutrophils % 72.4 %; Nucleated Red Blood Cells % 0 %; Platelet Count 226 10^3/cmm (157-399); Red Blood Count 4.56 10^6/uL (3.85-5.65); Red Cell Distribution Width 12.8 % (12.1-15.1); White Blood Count 9.58 10^3/uL (3.29-11.43)
[2024-08-04 09:55] LABS: Prolactin < 1.6 ng/mL (4.8-23.3)
[2024-08-04 10:05] LABS: 25 Hydroxy Vitamin D 85 ng/mL (30-100); Alanine Aminotransferase < 5 U/L (0-33); Albumin Level 4.3 g/dL (3.5-5.2); Alkaline Phosphatase 89 U/L (35-105); Anion Gap 11.3 (5-19); Aspartate Amino Transferase 14 U/L (0-32); Blood Urea Nitrogen 7 mg/dL (6-20); Calcium 9.4 mg/dL (8.5-10.5); Carbon Dioxide 27 mmol/L (22-29); Chloride 104 mmol/L (98-107); Chol HDL Ratio 6.68 mg/dL (0.0-4.40); Cholesterol 294 mg/dL (0-200); Globulin 3.1 g/dL (1.3-4.6); Glomerular Filtration Rate 91.3 mL/min (90-130); Glucose 125 mg/dL (65-115); HDL Cholesterol 44 mg/dL (60-100); LDL Cholesterol Calculated 189 mg/dL (50-129); Osmolality Calculated 285 mOsm/kg (285-295); Potassium 4.3 mmol/L (3.5-5.1); Sodium 138 mmol/L (136-145); Total Bilirubin 0.4 mg/dL (0.15-1.2); Total Protein 7.4 g/dL (6.6-8.7); Triglycerides 305 mg/dL (0-150); Vitamin B12 908 pg/mL (232-1245)
== END 2024-08-04 09:08 | disposition home or self-care (01) ==
LOC: LAB 09:08
PROVIDERS: PCP Registered Nurse; Visit Provider Internal Medicine
DX: F32.A Depression, unspecified (principal); E27.9 Disorder of adrenal gland, unspecified; D35.2 Benign neoplasm of pituitary gland; R79.89 Other specified abnormal findings of blood chemistry; E22.2 Syndrome of inappropriate secretion of antidiuretic hormone; E11.9 Type 2 diabetes mellitus without complications
CPT/HCPCS: 36415; 80053; 80061; 82024; 82306; 82607; 84146; 85025

== ENCOUNTER → 2024-10-12 10:31 | Outpatient (BNVA) | payer MEDICAID, SELFPAY | PROVIDERS: PCP Registered Nurse; Visit Provider Obstetrics & Gynecology | DX: Z01.419 Encounter for gynecological examination (general) (routine) without abnormal findings (principal) | CPT/HCPCS: 87624 ==

== ENCOUNTER 2024-10-15 15:21 | Outpatient (CLI) | payer MEDICAID, SELFPAY ==
[2024-10-15 16:02] LABS: Basophils % 0.2 %; Eosinophils # 0.1 10^3/uL (0.0-0.8); Eosinophils % 0.8 %; Hematocrit 44.2 % (36-47); Lymphocytes # 2.9 10^3/uL (0.8-4.8); Lymphocytes % 31.3 %; Mean Corpuscular Hemoglobin 30.2 pg (27-33); Mean Corpuscular Volume 91.3 fl (85-98); Mean Platelet Volume 11.2 fL (7.4-10.4); Monocytes # 0.4 10^3/uL (0.2-0.9); Monocytes % 4.4 %; Neutrophils # 5.79 10^3/uL (1.8-7.7); Nucleated Red Blood Cells % 0 %; Platelet Count 196 10^3/cmm (157-399); Red Blood Count 4.84 10^6/uL (3.85-5.65); Red Cell Distribution Width 12.7 % (12.1-15.1); White Blood Count 9.18 10^3/uL (3.29-11.43)
[2024-10-15 16:23] LABS: Alanine Aminotransferase 7 U/L (0-33); Albumin Level 4.6 g/dL (3.5-5.2); Alkaline Phosphatase 83 U/L (35-105); Anion Gap 15.3 (5-19); Aspartate Amino Transferase 15 U/L (0-32); Blood Urea Nitrogen 8 mg/dL (6-20); Calcium 9.5 mg/dL (8.5-10.5); Carbon Dioxide 27 mmol/L (22-29); Chloride 102 mmol/L (98-107); Globulin 2.7 g/dL (1.3-4.6); Glomerular Filtration Rate 91.3 mL/min (90-130); Glucose 85 mg/dL (65-115); Iron 91 ug/dL (37-145); Osmolality Calculated 288 mOsm/kg (285-295); Percent Saturation 26.6 % (20-50); Potassium 4.3 mmol/L (3.5-5.1); Sodium 140 mmol/L (136-145); Total Bilirubin 0.3 mg/dL (0.15-1.2); Total Iron Binding Capacity 341 mcg/dl; Total Protein 7.3 g/dL (6.6-8.7); Unsaturated Iron Binding 250 ug/dL (112-347)
== END 2024-10-15 15:22 | disposition home or self-care (01) ==
LOC: LAB 15:23
PROVIDERS: PCP Registered Nurse; Visit Provider Nurse Practitioner Family
DX: L29.9 Pruritus, unspecified (principal)
CPT/HCPCS: 36415; 80048; 80076; 83540; 83550; 85025

== ENCOUNTER → 2024-11-03 10:23 | Outpatient (BNVA) | payer MEDICAID, SELFPAY | PROVIDERS: PCP Registered Nurse; Visit Provider Obstetrics & Gynecology | DX: D25.9 Leiomyoma of uterus, unspecified (principal); N83.201 Unspecified ovarian cyst, right side; N83.202 Unspecified ovarian cyst, left side | CPT/HCPCS: 76830 ==

== ENCOUNTER 2024-12-02 09:43 | Outpatient (CLI) | payer MEDICAID, SELFPAY ==
--- NOTE | 2024-12-02 10:00 | CT_ITS ---
WS: [email or web address] CT chest wo con [id number] HISTORY: R91.1 - Solitary pulmonary nodule TECHNIQUE: Axial imaging performed through the thorax. Coronal and sagittal reformats are submitted. All CT scans at [facility] use at least one of these dose optimization techniques: automated exposure control; mA and/or kV adjustment per patient size (includes targeted exams where dose is matched to clinical indication); or iterative reconstruction. CONTRAST: None DLP: 277.48 mGy.cm COMPARISON: 12/03/2023 Lungs and central airway: Moderate pulmonary hyperinflation. Reidentified is 3 mm noncalcified nodule in the RIGHT upper lobe. No increase in size since the prior exam.. 2 adjacent perifissural nodules along the short fissure. These nodules measure approximately 2 mm. There is an additional 2 mm subpleural nodule in the RIGHT middle lobe. Focal groundglass attenuation in the lingula extends to the pleura. Groundglass attenuation measures 4 cm. Pleura: Pleural thickening greatest towards the lung base measures 10 mm. No free-flowing fluid. Heart and pericardium: Normal size heart with no pericardial effusion. Mediastinum and leonardo: No mediastinum or hilar adenopathy. Vessels: Normal size aortic and pulmonary artery. No coronary artery calcifications. Chest wall and lower neck: No soft tissue masses. Upper abdomen: Normal. Osseous structures: No destructive process. CT/CT chest wo con [id number] IMPRESSION: 1. No increase in size 3 mm noncalcified nodule RIGHT upper lobe since 12/03/19 24. 2. Additional groundglass attenuation in the lingula. Low-grade neoplasm is no t excluded. Recommend follow-up chest CT in 6 to 12 months. 3. Few additional scattered micronodules which are 2 mm. No follow-up necessar y. 4. LEFT pleural thickening measuring up to 10 mm of uncertain etiology. May be from prior chest trauma or infection. 5. No mediastinal or hilar adenopathy. 6. Hyperexpanded lungs with chronic emphysema.
[2024-12-02 11:01] LABS: Alanine Aminotransferase 6 U/L (0-33); Albumin Level 4.2 g/dL (3.5-5.2); Alkaline Phosphatase 109 U/L (35-105); Anion Gap 16.3 (5-19); Aspartate Amino Transferase 13 U/L (0-32); Blood Urea Nitrogen 7 mg/dL (6-20); Calcium 9.6 mg/dL (8.5-10.5); Carbon Dioxide 28 mmol/L (22-29); Chloride 101 mmol/L (98-107); Follicle Stimulating Hormone 6.9 mIU/mL; Globulin 3.2 g/dL (1.3-4.6); Glomerular Filtration Rate 91.3 mL/min (90-130); Glucose 80 mg/dL (65-115); Luteinizing Hormone 16.3 mIU/mL (0.5-41.7); Osmolality Calculated 289 mOsm/kg (285-295); Potassium 4.3 mmol/L (3.5-5.1); Prolactin < 1.6 ng/mL (4.8-23.3); Sodium 141 mmol/L (136-145); Thyroid Stimulating Hormone 2.33 uIU/mL (0.27-4.20); Total Bilirubin 0.3 mg/dL (0.15-1.2); Total Protein 7.4 g/dL (6.6-8.7)
[2024-12-02 11:26] LABS: Cortisol Random 10.51 ug/dL (2.47-19.5); Free T4 Free Thyroxine 1.26 ng/dL (0.82-1.77)
[2024-12-05 18:39] LABS: Adrenocorticotropic Hormone 8 pg/mL (6-50)
== END 2024-12-02 09:44 | disposition home or self-care (01) ==
LOC: RAD 09:45
PROVIDERS: Internal Medicine; PCP Registered Nurse; Visit Provider Registered Nurse
DX: R91.8 Other nonspecific abnormal finding of lung field (principal); E28.2 Polycystic ovarian syndrome; N92.6 Irregular menstruation, unspecified; D35.2 Benign neoplasm of pituitary gland; E34.9 Endocrine disorder, unspecified; F41.8 Other specified anxiety disorders; E87.1 Hypo-osmolality and hyponatremia; N93.0 Postcoital and contact bleeding; R32 Unspecified urinary incontinence; J92.9 Pleural plaque without asbestos; J43.8 Other emphysema
CPT/HCPCS: 36415; 71250; 80053; 82024; 82533; 83001; 83002; 83003; 84146; 84305; 84439; 84443

== ENCOUNTER → 2025-01-20 14:08 | Outpatient (BNVA) | payer MEDICAID, SELFPAY | PROVIDERS: PCP Registered Nurse; Visit Provider Obstetrics & Gynecology | DX: Z12.4 Encounter for screening for malignant neoplasm of cervix (principal) | CPT/HCPCS: 87624 ==

== ENCOUNTER 2025-02-01 10:25 | Outpatient (CLI) | payer MEDICAID, SELFPAY | END 2025-02-01 10:26 | disposition home or self-care (01) | PROVIDERS: PCP Registered Nurse; Visit Provider Internal Medicine Endocrinology, Diabetes & Metabolism | DX: D49.7 Neoplasm of unspecified behavior of endocrine glands and other parts of nervous system (principal) | CPT/HCPCS: 76830 ==

== ENCOUNTER 2025-06-02 09:04 | Outpatient (CLI) | payer MEDICAID, SELFPAY ==
--- NOTE | 2025-06-02 09:20 | MM_ITS ---
WS: [email or web address] BILATERAL SCREENING DIGITAL TOMOSYNTHESIS MAMMOGRAM WITH CAD HISTORY: Z12.39 - Encounter for other screening for malignant neop... COMPARISON: 01/24/2024, 01/10/2023 Bilateral CC and MLO views with tomosynthesis and synthetic mammography submitted. Computer aided detection analyzed. Breast composition: There are scattered areas of fibroglandular density. No suspicious masses, microcalcifications or architectural distortion. No new mass. There are small masses in the LEFT breast which are probably lymph nodes and these are stable. No suspicious grouping of calcifications. MM/MM scr BI tomosynthesis [id number] IMPRESSION: BI-RADS: 2 - Benign. FOLLOW UP: 1 Year Follow-up
== END 2025-06-02 09:05 | disposition home or self-care (01) ==
LOC: MOBLMAM 09:05
PROVIDERS: PCP Registered Nurse; Visit Provider Registered Nurse
DX: Z12.31 Encounter for screening mammogram for malignant neoplasm of breast (principal); R92.323 Mammographic fibroglandular density, bilateral breasts; N63.20 Unspecified lump in the left breast, unspecified quadrant
CPT/HCPCS: 77063; 77067

== ENCOUNTER 2025-06-04 11:47 | Outpatient (CLI) | payer MEDICAID, SELFPAY ==
--- NOTE | 2025-06-04 12:00 | CT_ITS ---
WS: [email or web address] CT chest wo con [id number] HISTORY: R93.89 - Abnormal findings on diagnostic imaging of other... TECHNIQUE: Axial imaging performed through the thorax. Coronal and sagittal reformats are submitted. All CT scans at [facility] use at least one of these dose optimization techniques: automated exposure control; mA and/or kV adjustment per patient size (includes targeted exams where dose is matched to clinical indication); or iterative reconstruction. CONTRAST: None DLP: 290.71 mGy.cm COMPARISON: 06/04/2025, 12/03/2023. Lungs and central airway: Mild pulmonary hyperinflation. Stable 3 mm RIGHT upper lobe pulmonary nodule is not calcified. Groundglass attenuation in the lingula has completely resolved. 3.7 mm lingular nodule is identified. 3 mm RIGHT middle lobe nodule stable. 2 mm micronodule at the LEFT lung base. Subpleural nodule medial RIGHT lower lobe stable. No mass or nodule increasing in size. Pleura: No pleural effusions. Pleural thickening noted on the LEFT has resolved. Heart and pericardium: Normal size heart with no pericardial effusion. Mediastinum and leonardo: No mediastinum or hilar adenopathy. Vessels: Normal size aortic and pulmonary artery. No coronary artery calcifications. Chest wall and lower neck: No soft tissue masses. Upper abdomen: No adrenal mass. Visualized liver is negative. Osseous structures: No destructive process. CT/CT chest wo con [id number] IMPRESSION: 1. Complete interval resolution groundglass attenuation in the lingula. No fol low-up necessary. 2. Numerous very small micronodules noted bilaterally. No follow-up necessary. No mass or pneumonia. 3. No mediastinal or hilar adenopathy.
== END 2025-06-04 11:48 | disposition home or self-care (01) ==
LOC: RAD 11:48
PROVIDERS: PCP Registered Nurse; Visit Provider Registered Nurse
DX: R93.89 Abnormal findings on diagnostic imaging of other specified body structures (principal); J98.4 Other disorders of lung; R91.8 Other nonspecific abnormal finding of lung field
CPT/HCPCS: 71250